=== PATIENT | female | born 1980 | race Caucasian/White ===

== ENCOUNTER 2024-11-27 20:07 | Emergency (ER) | payer OTHER ==
[2024-11-27 20:14] VITALS: BP 127/73; PULSE 82; RESP 18; TEMP 98.2; BMI 27.3
[2024-11-27] MEDS ORDERED: KETOROLAC TROMETHAMINE 30 MG/1 ML VIAL ONE (21:28)
[2024-11-27] MEDS: KETOROLAC TROMETHAMINE 30 MG/1 ML VIAL IM ONE (21:34)
== END 2024-11-27 22:30 | disposition home or self-care (01) ==
LOC: JERFT 20:07
PROC: 3E0233Z Introduction of Anti-inflammatory into Muscle, Percutaneous Approach (ICD-10-PCS; principal; 2024-11-27)
DX: S52.502A Unspecified fracture of the lower end of left radius, initial encounter for closed fracture (principal); S52.612A Displaced fracture of left ulna styloid process, initial encounter for closed fracture; S62.102A Fracture of unspecified carpal bone, left wrist, initial encounter for closed fracture; W03.XXXA Other fall on same level due to collision with another person, initial encounter
CPT/HCPCS: 73090-TC-LT-FY; 73110-TC-LT-FY; 73130-TC-LT-FY; 99284-25